=== PATIENT | male | born 1990 | race Caucasian/White ===

== ENCOUNTER → 2016-12-01 | Outpatient (CLI) | payer OTHER ==
--- NOTE | ~2016-12-01 | US6 ---
[facility] A Service of [facility] [place] RADIOLOGY TEXT RESULTS PATIENT: GABY OLGUIN LOCATION: [facility] : [birth year] UNIT #: [id number] AGE: [address]: ONEAL BARBOSA, GOLDEN SEX: M ORDER DR: [id number] [address] [address] [id number] O MR#: [id number] Acc #: [id number] NAME: GABY OLGUIN : 1990 SEX: M STUDY DATE/TIME: 12/01/2016 12:33 UNIT: SGUS ROOM: STUDY DESCRIPTION: US Abdominal Limited Ordering Physician: Physician Non-Staff MEDICAL IMAGING REPORT This report is preliminary unless electronic signature is present. EXAM Right upper quadrant abdominal ultrasound INDICATIONS Right upper quadrant abdominal pain for the past 2-3 months. TECHNIQUE Salazar-scale and Doppler imaging of the right upper quadrant of the abdomen. COMPARISON None. FINDINGS Pancreas is mostly obscured by bowel gas and not well seen. The liver has homogeneous echotexture and measures 13.3 cm. The second submitted image of the liver measures up to 16.4 cm. No liver mass on submitted images. Right kidney measures 10.7 cm and is normal. Unremarkable gallbladder. Common duct measures 2 mm. IMPRESSION Pancreas is not well seen on this study. Otherwise, negative right upper quadrant ultrasound. Dictated by... Spencer Montano M.D. THIS IS AN ELECTRONICALLY VERIFIED REPORT Spencer Montano M.D. at 12/02/2016 7:02 AM EED/pcl [facility] A Service of [facility] [place] RADIOLOGY TEXT RESULTS PATIENT: GABY OLGUIN LOCATION: [facility] : [birth year] UNIT #: [id number] AGE: [address]: ONEAL BARBOSA, GOLDEN SEX: M ORDER DR: TD: 12/01/2016 18:38 JOB #: [id number] MEDICAL IMAGING REPORT Page 1 of 1
== END | disposition home or self-care (01) ==
LOC: SGUS 12:18
DX: R10.11 Right upper quadrant pain (principal)
CPT/HCPCS: 76705

== ENCOUNTER → 2017-02-10 | Outpatient (CLI) | payer OTHER ==
--- NOTE | ~2017-02-10 | CT2 ---
[facility] A Service of [facility] RADIOLOGY TEXT RESULTS PATIENT: GABY OLGUIN LOCATION: [facility] : [birth year] UNIT #: [id number] AGE: [address]: Ced Grayson MD SEX: M ORDER DR: [id number] [address] [address] [id number] O MR#: [id number] Acc #: [id number] NAME: GABY OLGUIN : 1990 SEX: M STUDY DATE/TIME: 02/10/2017 12:12 UNIT: [facility] ROOM: STUDY DESCRIPTION: CT Abd and Pelv W Cont Attending Physician: Ced Grayson M.D. Referring Physician: Ced Grayson M.D. Ordering Physician: Ced Grayson M.D. MEDICAL IMAGING REPORT This report is preliminary unless electronic signature is present. EXAM CT abdomen and pelvis with contrast 02/10/2017 HISTORY 26-year-old male with abdominal pain for 1 month. Diarrhea and blood in stool. COMPARISON STUDIES None. TECHNIQUE Helical scan performed through the abdomen and pelvis following menstruation oral and IV contrast. Coronal and sagittal reformatted images. This CT exam was performed with one or more of the following radiation dose reduction techniques: automatic exposure control, adjustment of mA and/or kV according to patient size, and iterative reconstruction. FINDINGS Visualized lung bases are unremarkable. The liver, spleen, pancreas, gallbladder, both adrenal glands, both kidneys are within normal limits. Abdominal aorta normal in course and caliber without dissection. Small bowel is unremarkable without obstruction. Appendix is normal. There is some equivocal mild circumferential thickening of the descending and sigmoid colonic wall. No pericolonic inflammatory stranding. This is nonspecific and could be secondary to incomplete distension versus mild acute colitis. No evidence of perforation or abscess. Remainder of the colon is within expected limits. [facility] A Service of [facility] RADIOLOGY TEXT RESULTS PATIENT: GABY OLGUIN LOCATION: [facility] : [birth year] UNIT #: [id number] AGE: [address]: Ced Grayson MD SEX: M ORDER DR: The urinary bladder and prostate gland are within normal limits. No free pelvic fluid. No acute bony abnormality. IMPRESSION 1. Equivocal mild circumferential wall thickening involving the descending colon and sigmoid colon. No significant pericolonic inflammatory stranding. The findings are nonspecific and could be secondary to incomplete distension/partial collapse versus mild acute colitis. No evidence of perforation or abscess. 2. Normal appendix. 3. Remainder of the examination is unremarkable. Dictated by... Rufino Walters M.D. THIS IS AN ELECTRONICALLY VERIFIED REPORT Rufino Walters M.D. at 02/13/2017 1:18 PM DEREK/christine TD: 02/10/2017 20:45 JOB #: [id number] MEDICAL IMAGING REPORT Page 1 of 1
== END | disposition home or self-care (01) ==
LOC: SCT 11:10
DX: R10.9 Unspecified abdominal pain (principal); R11.2 Nausea with vomiting, unspecified; K62.5 Hemorrhage of anus and rectum; K63.89 Other specified diseases of intestine
CPT/HCPCS: 74177; Q9967